=== PATIENT | female | born 1975 | race Caucasian/White ===

== ENCOUNTER 2024-02-18 08:40 | Outpatient (CLI) | payer OTHER | END 2024-02-18 08:41 | disposition home or self-care (01) | LOC: BICRAD 08:40 | PROVIDERS: ATTEND Family Medicine | DX: M25.562 Pain in left knee (principal); G89.29 Other chronic pain; I10 Essential (primary) hypertension; M25.862 Other specified joint disorders, left knee; M25.762 Osteophyte, left knee; M76.9 Unspecified enthesopathy, lower limb, excluding foot; Z98.890 Other specified postprocedural states | CPT/HCPCS: 71046 ==